=== PATIENT | female | born 2000 | race Caucasian/White ===

== ENCOUNTER 2021-12-28 14:15 | Emergency (ER) | payer SELFPAY ==
[~2021-12-28] VITALS: Ht 165.1 cm; Wt 65.8 kg
[~2021-12-28 14:15] MED LIST: ACET-9528 PO
[2021-12-28 14:35] VITALS: BP 130/88
[2021-12-28] MEDS ORDERED: predniSONE 20 MG TAB PO ONE (15:20)
[2021-12-28] MEDS ORDERED: PRED20TA5 PO (15:22)
[2021-12-28] MEDS ORDERED: DIPH25TA53 PO (15:22)
[2021-12-28] MEDS ORDERED: LORA10TA60 PO (15:22)
--- NOTE | 2021-12-28 15:35 | NUR ---
21/F PRESENTS TO ED WITH C/O ITCHY, RED, BUMPY BODY RASH X3 DAYS, DENIES RECENT USE OF NEW PRODUCTS OR FOODS. STATES SHE TOOK BENADRYL WITH NO RELIEF, PATIENT DENIES PAIN, STATES NO ONE AT HOME HAS THE SAME SYMPTOMS.
--- NOTE | 2021-12-28 15:44 | NUR ---
Patient discharged with v/s stable. Written and verbal after care instructions ABOUT RASH given and explained. Patient alert, oriented and verbalized understanding of instructions. Ambulatory with steady gait. All questions addressed prior to discharge. ID band removed. Patient advised to follow up with PMD. Rx of BENADRYL, LORATIDINE AND PREDNISONE given. Patient educated on indication of medication including possible reaction and side effects. Opportunity to ask questions provided and answered.
== END 2021-12-28 15:44 | disposition home or self-care (01) ==
LOC: MED 14:15
DX: R21 Rash and other nonspecific skin eruption (principal); Z79.899 Other long term (current) drug therapy
CPT/HCPCS: 99283; J7512